=== PATIENT | female | born 1985 | race African-American/Black ===

== ENCOUNTER 2016-08-05 07:24 | Emergency (ER) | payer BC, OTHER ==
[~2016-08-05] VITALS: Ht 160 cm; Wt 68.0 kg
[~2016-08-05 07:24] MED LIST: Z.0.BCPILL
[2016-08-05 07:26] VITALS: BP 123/63; PULSE 84; RESP 16; TEMP 98.8; O2SAT 96
[2016-08-05] MEDS ORDERED: PERI0.126 SWISH-SPIT (08:08)
[2016-08-05] MEDS ORDERED: IBUP800T23 PO (08:08)
[2016-08-05] MEDS ORDERED: CLIN1CAP6 PO (08:08)
--- NOTE | 2016-08-05 08:09 | PD ---
HPI Chief Complaint: Oral / Dental Pain or Problem Time Seen by Provider: 08:05 Travel History International Travel<30 days: No Contact w/Intl Traveler<30days: No Traveled to known affect area: No History of Present Illness HPI 31-year-old female presents to the emergency department for evaluation of left upper toothache and facial swelling. Patient states she woke up Saturday morning with a toothache. She started noticing the swelling on Saturday. She states this morning the swelling was worse. She has been taking ibuprofen at home for the pain. She last took this last night. Patient denies having any chronic medical problems or taking any prescribed medications. She denies any chance of . She denies any fevers or chills. She has no other complaints at this time. [facility] Past Medical History Medical History: Denies Significant Hx ?: Not LMP: 07/19/16 Social History Alcohol Use: Yes (OCC) Tobacco Use: No Substance Use: No Allergies-Medications (Allergen,Severity, Reaction): Coded Allergies: No Known Allergies (Verified , 08/05/16) Reported Meds & Prescriptions Reported Meds & Active Scripts Active Clindamycin (Clindamycin HCl) 300 Mg Cap 300 Mg PO Q6H 10 Days Peridex Liq (Chlorhexidine Gluconate (Mouth) Liq) 0.12% Soln 15 Ml SWISH-SPIT BID Ibuprofen 800 Mg Tab 800 Mg PO TID PRN Reported Control Pills (Miscellaneous Medication) Tab Review of Systems Except as stated in HPI: all other systems reviewed are Neg Physical Exam Narrative GENERAL: Well-developed well-nourished female patient, ambulatory. Afebrile. SKIN: Warm and dry. HEAD: Normocephalic. Atraumatic. Patient has left facial swelling. This does not extend beyond the mandibular drainage. ENT: Mucosa pink and moist. No erythema or exudates. No uvular edema. No uvular , palatal, or tonsillar deviation. Airway patent. Nasal turbinates appear normal without nasal blood, purulent drainage or septal hematoma. Bilateral tympanic membranes are clear without erythema or perforation. Patient has tenderness above tooth #10, 11, 12. No drainable fluctuance. EYES: No scleral icterus. No injection or drainage. NECK: Supple, trachea midline. No JVD or lymphadenopathy. CARDIOVASCULAR: Regular rate and rhythm without murmurs, gallops, or rubs. RESPIRATORY: Breath sounds equal bilaterally. No accessory muscle use. Lungs sounds are clear to auscultation. GASTROINTESTINAL: Abdomen soft, non-tender, nondistended. MUSCULOSKELETAL: No cyanosis, or edema. Data Data Last Documented VS Vital Signs Date Time Temp Pulse Resp B/P Pulse Ox O2 Delivery O2 Flow Rate FiO2 08/05/16 07:26 98.8 84 16 123/63 96 Room Air Orders Ketorolac Inj (Toradol Inj) (08/05/16 08:15) Clindamycin (Cleocin) (08/05/16 08:15) [facility] Medical Decision Making Medical Screen Exam Complete: Yes Emergency Medical Condition: Yes Medical Record Reviewed: Yes Differential Diagnosis Dental abscess versus dental caries versus gingivitis Narrative Course 31-year-old female presents to the emergency department for evaluation of dental pain and facial swelling. Physical exam is consistent with a dental abscess. Patient is given Toradol 60 mg IM and clindamycin 300 mg by mouth in the emergency department. She will be discharged with a prescription for clindamycin, Peridex oral solution, ibuprofen. She is to follow-up with a dentist. She is to return for any acute worsening of symptoms. Patient verbalizes agreement and understanding. Diagnosis Primary Impression: Dental abscess Referrals: Dentist call for appointment Patient Instructions: Dental Abscess (ED), General Instructions Departure Forms: Tests/Procedures, Work Release Enter return to work date: Aug 07, 2016 Additional Instructions: Take antibiotic as directed until gone. Use Peridex oral solution as instructed. Take ibuprofen as directed as needed with food for pain. Follow-up with a dentist. Return the emergency department for any worsening of symptoms. Med/Other Pt SpecificInfo: Prescription(s) given Scripts Clindamycin 300 Mg [id number] Mg PO Q6H 10 Days Ref 0 Prov:Leann Priest 08/05/16 Chlorhexidine Gluconate (Mouth) Liq (Peridex Liq)0.12% Soln15 Ml SWISH-SPIT BID #473 ML Ref 0 Prov:Leann Priest 08/05/16 Ibuprofen 800 Mg [id number] Mg PO TID PRN (PAIN SCALE 1 TO 10) #21 TAB Ref 0 Prov:Leann Priest 08/05/16 Disposition: 01 DISCHARGE HOME Condition: Stable Leann Priest Aug 05, 2016 08:09
[2016-08-05] MEDS ORDERED: KETOROLAC TROMETHAMINE 60 MG/2 ML (IM) VIAL IM ONE (08:15)
[2016-08-05] MEDS ORDERED: CLINDAMYCIN 150 MG CAP PO ONE (08:15)
== END 2016-08-05 09:46 | disposition home or self-care (01) ==
LOC: NETRI 07:24
DX: K04.7 Periapical abscess without sinus (principal)
CPT/HCPCS: 96372; 99282; J1885